=== PATIENT | female | born 1960 | race Hispanic/Latino ===

== ENCOUNTER 2017-11-14 20:41 | Emergency (ER) | payer SELFPAY ==
[~2017-11-14] VITALS: Ht 165.1 cm; Wt 74.8 kg
[2017-11-14] MEDS ORDERED: SODIUM CHLORIDE 0.9% 1000ML 1,000 ML IV STA (20:49)
[2017-11-14] MEDS ORDERED: ONDANSETRON HCL INJ 2 MG/ML VIAL IV STA (20:49)
[2017-11-14] MEDS ORDERED: MORPHINE SULFATE 4 MG/ML SYR IV STA (20:49)
[2017-11-14] MEDS ORDERED: ASPIRIN 81 MG CHEW TAB PO ONE (21:00)
[2017-11-14 21:12] LABS: BASOPHILS # (AUTO) 0.1 (0.0-0.1); BASOPHILS % 0.7 % (0.0-1.0); EOSINOPHILS # (AUTO) 0.4 (0.0-0.4); EOSINOPHILS % 5.3 % (0.0-6.0); HEMATOCRIT 37.8 % (34.2-44.1); HEMOGLOBIN 12.9 g/dL (12.0-16.0); LYMPHOCYTES # (AUTO) 1.7 (1.0-3.2); LYMPHOCYTES % 25.3 % (18.0-39.1); MEAN CORPUSCULAR HEMOGLOBIN 31.1 pg (28-32); MEAN CORPUSCULAR HGB CONC 34.1 g/dL (31-35); MEAN CORPUSCULAR VOLUME 91.1 fL (81-99); MONOCYTES # (AUTO) 0.5 (0.2-0.8); MONOCYTES % 6.9 % (4.4-11.3); NEUTROPHILS # (AUTO) 4.2 (2.1-6.9); NEUTROPHILS % 61.7 % (38.7-80.0); PLATELET COUNT 226 x10e3/uL (140-360); RED BLOOD COUNT 4.15 x10e6/uL (3.6-5.1)
[2017-11-14 21:23] LABS: INR 0.99; PARTIAL THROMBOPLASTIN TIME 25.3 seconds (23.8-35.5); PROTHROMBIN TIME 12.3 seconds (11.9-14.5)
[2017-11-14] MEDS ORDERED: MORPHINE SULFATE 2 MG/ML SYR ONE (21:29)
[2017-11-14 21:45] LABS: CLARITY,URINE CLEAR (CLEAR); COLOR,URINE AMBER (YELLOW)
[2017-11-14 21:46] LABS: BILIRUBIN,URINE NEGATIVE (NEGATIVE); KETONES,URINE TRACE (NEGATIVE); LEUKOCYTE ESTERASE ,URINE NEGATIVE (NEGATIVE); NITRITE,URINE NEGATIVE (NEGATIVE); PROTEIN,URINE DIPSTICK TRACE (NEGATIVE); URINE UROBILINOGEN 0.2 mg/dL (0.2 - 1)
[2017-11-14] MEDS ORDERED: PANTOPRAZOLE 40 MG 10ML VIAL IV STA (21:46)
[2017-11-14] MEDS ORDERED: KETOROLAC TROMETHAMINE 30 MG/ML VIAL IV STA (21:46)
[2017-11-14 21:50] LABS: CREATINE KINASE MB 0.9 ng/mL (0-5.0); THYROID STIMULATING HORMONE 1.118 uIU/mL (0.350-4.940)
--- NOTE | 2017-11-14 21:50 | Diagnostic Imaging Report ---
EXAM: CHEST SINGLE (PORTABLE), AP 1 view INDICATION: Abdominal pain COMPARISON: None FINDINGS: LINES/TUBES: None LUNGS: No consolidations or edema. PLEURA: No effusions or pneumothorax. HEART AND MEDIASTINUM: Normal size and contour. BONES AND SOFT TISSUES: No acute findings. IMPRESSION: No acute thoracic abnormality. Signed by: Dr. Lori Price M.D. on 11/14/2017 9:46 PM
[2017-11-14 21:56] LABS: EPITHELIAL CELLS,URINE MANY /LPF
[2017-11-14 21:58] LABS: WBC,URINE (MAN) 0-5 /HPF (0-5)
[2017-11-14 21:59] LABS: MUCUS,URINE FEW (RARE)
[2017-11-14 22:00] LABS: BACTERIA,URINE FEW /HPF
[2017-11-14 22:01] LABS: RENAL EPITHELIAL CELLS,URINE FEW; TRANSITIONAL EPI CELLS,URINE MODERATE
== END 2017-11-14 22:49 | disposition left against medical advice (07) ==
LOC: ER 20:41
DX: R10.13 Epigastric pain (principal); R10.11 Right upper quadrant pain; E03.9 Hypothyroidism, unspecified
CPT/HCPCS: 36415; 71045; 81001; 82150; 82550; 82553; 83690; 84443; 84484; 85025; 85610; 85730; 87086; 93005; 99284; J1885; J2270; J2405; J7030